=== PATIENT | female | born 1940 | race Caucasian/White ===

== ENCOUNTER 2017-07-18 13:45 | Emergency (ER) | payer MEDICARE, OTHER, MEDICAID ==
[~2017-07-18] VITALS: Ht 167.6 cm; Wt 77.1 kg
[~2017-07-18 13:45] MED LIST: CALCIUM 600 +1 EAC1 PO; CENTRUM SILVER1 EAC5 PO; CHOLESTEROL MED; CRUTCH1 EACH MC; LORAZEPAM1 MG PO; MELOXICAM7.5 MG PO; METOPROLOL SUCC50 MG PO; NORCO 5-325 TA1 EACH PO; OMEGA 3 1,0001 EACH PO; ORENCIA125 MG/1 M SUB-Q; PREDNISONE5 MG PO; RECLAST 55 MG/100 M IV; SIMVASTATIN20 MG PO; TOPROL XL25 MG PO; VICODIN 5-5001 EACH PO
--- NOTE | 2017-07-19 06:38 | EKG ---
[facility] [address] [place] [address] Signed Normal sinus rhythm Inferior infarct , age undetermined Abnormal ECG No previous ECGs available Confirmed by MARY LOU KELSEY MD ([id number] on 07/19/2017 6:38:19 AM Electronically Signed By: MARY LOU KELSEY MD 07/19/17 0638 PATIENT NAME: SHAHID BARAHONA ANN Electrocardiogram DATE OF : 42 PHYSICIAN: MARY LOU KELSEY MD REPORT #: [id number] REPORT IS CONFIDENTIAL AND NOT TO BE RELEASED WITHOUT AUTHORIZATION
== END 2017-07-18 20:10 | disposition short-term general hospital (02) ==
LOC: ED 13:45
PROC: 0T9B70Z Drainage of Bladder with Drainage Device, Via Natural or Artificial Opening (ICD-10-PCS; principal; 2017-07-18)
DX: G93.9 Disorder of brain, unspecified (principal); R44.1 Visual hallucinations; M81.0 Age-related osteoporosis without current pathological fracture; I10 Essential (primary) hypertension; M06.9 Rheumatoid arthritis, unspecified; Z87.891 Personal history of nicotine dependence; Z90.49 Acquired absence of other specified parts of digestive tract; Z88.8 Allergy status to other drugs, medicaments and biological substances; Z79.899 Other long term (current) drug therapy
CPT/HCPCS: 51701; 70450; 71046; 80053; 80176; 81001; 83605; 84484; 85025; 85610; 93005; 93010; 99285; G0480